=== PATIENT | female | born 1965 | race Caucasian/White ===

== ENCOUNTER → 2024-10-01 | Outpatient (CLI) | payer MEDICARE, MEDICAID, SELFPAY ==
--- NOTE | 2024-10-01 14:44 | XR_ITS ---
Examination: PA lateral chest 2 views TECHNIQUE: Upright PA lateral chest 2 views Exam date and time: October 01, 2024 1450 hours INDICATIONS: Coughing beginning 2 weeks ago FINDINGS: Left perihilar pneumonia Right lung clear Prominent osteopenia with old deformity right humeral neck IMPRESSION: Mild to moderate left perihilar pneumonia
== END | disposition home or self-care (01) ==
PROVIDERS: PCP Physician Assistant; Referring Provider Physician Assistant; Visit Provider Physician Assistant
DX: J18.9 Pneumonia, unspecified organism (principal)
CPT/HCPCS: 71046

== ENCOUNTER 2024-10-05 11:44 | Inpatient (IN) | payer MEDICARE, MEDICAID, SELFPAY ==
[2024-10-05 11:54] VITALS: BP 140/80; PULSE 85; RESP 18; TEMP 36.9; O2SAT 96
[2024-10-05 11:56] VITALS: BMI 26.4
--- NOTE | 2024-10-05 12:08 | PD.EDFALL ---
ED Fall Injury RME/HPI General Chief Complaint: Fall Stated Complaint: FALL Time Seen by Provider: 10/05/24 12:06 Arrival date/time: 10/05/24 11:44 Limitations: no limitations RME / HPI RME / HPI Narrative: 59 year old female who is developmentally delayed presents to the ED BIB[facility] from [facility] for evaluation after fall today. Per caregiver, the patient has had three falls in the last 24 hours which has raised concern. States on the first fall she fell straight on her bottom. On the second fall she fell straight back. On the third fall she tripped on a walker and struck her face on the floor. Additionally report patient appears disoriented adding she is having difficulty with simple tasks which at baseline she would otherwise be able to do. Patient is nonverbal and unable to provide any additional history. Related Data Home Medications ?Medication ?Instructions ?Recorded ?Confirmed levothyroxine 50 mcg tablet See Rx Instructions .Route .COMPLEX 01/18/18 03/23/19 levothyroxine 75 mcg tablet See Rx Instructions .Route .COMPLEX 01/18/18 03/23/19 quetiapine 400 mg tablet,extended 400 mg PO HS 01/18/18 03/23/19 release 24 hr (Seroquel XR) quetiapine 400 mg tablet,extended 400 mg PO QPM 08/09/18 03/23/19 release 24 hr divalproex 500 mg tablet,extended 500 mg PO HS 11/03/18 03/23/19 release 24 hr polyethylene glycol 3350 17 gram 17 g PO QDAY 11/03/18 03/23/19 oral powder packet Previous Rx's ?Medication ?Instructions ?Recorded acetaminophen 325 mg capsule 650 mg (2 x 325 mg) PO Q8HR PRN 11/04/22 pain #30 caps acetaminophen 325 mg tablet 650 mg (2 x 325 mg) PO QID PRN 11/04/22 (Athenol) pain #60 tabs lidocaine 5 % topical patch 2 patch topical QDAY #15 ea 11/04/22 Allergies Allergy/AdvReac Type Severity Reaction Status Date / Time No Known Allergies Allergy Verified 10/05/24 12:01 Review of Systems Review of Systems ROS Unobtainable: unobtainable due to medical condition Past Medical History Past Medical History NEUROLOGIC: Positive Neurological Disorders MUSCULOSKELETAL: Positive Musculoskeletal Disorders, Arthritis and Osteoporosis ENDOCRINE: Positive Endocrine Disorders and Hypothyroidism PSYCHO/SOCIAL: Positive Behavior Problems Social History SMOKING STATUS: Unknown if ever smoked ED Exam General Limitations: Present no limitations General appearance: Present alert (awake) Head Head exam: Present atraumatic Eye Eye exam: Present normal appearance, PERRL and EOMI ENT ENT exam: Present normal exam, normal oropharynx and mucous membranes moist Neck Neck exam: Present normal inspection, full ROM and trachea midline Chest Chest inspection: Present normal inspection and symmetric chest wall rise Respiratory Respiratory exam: Present normal lung sounds bilaterally Cardiovascular Cardiovascular exam: Present regular rate, normal rhythm and normal heart sounds Abdominal Exam Abdominal exam: Present soft and normal bowel sounds Extremities Exam Extremities exam: Present normal inspection and full ROM Back Exam Back exam: Present normal inspection and full ROM Neurological Exam Neurological exam: Present alert (awake), CN II-XII intact and other ( Gross motor function intact sensory function intact) Skin Skin exam: Present warm, dry, intact and normal color Course Quality Measures none Orders Category Date Time Status Bedside Blood Glucose NOW Care 10/05/24 12:54 Active COVID-19 Screening Questionnaire NOW Care 10/05/24 17:23 Active Instrumentation And Control Technician NOW Care 10/05/24 12:55 Active Continuous Pulse Oximetry QSHIFT Care 10/05/24 12:54 Active Decision to Admit X1 Care 10/05/24 17:23 Active EKG (ED ONLY) *Do not use* NOW Care 10/05/24 12:55 Completed Insert IV NOW Care 10/05/24 12:55 Active NPO NOW Care 10/05/24 12:[address] cervical spine wo con Stat Exams 10/05/24 12:[address] head/brain wo con Stat Exams 10/05/24 12:[address] head/brain wo con Stat Exams 10/05/24 16:53 Ordered EKG (ED Only) Stat Exams 10/05/24 12:54 Draft Acetaminophen Stat Lab 10/05/24 13:15 Completed Alcohol, Blood Medical Stat Lab 10/05/24 13:15 Completed CBC Stat Lab 10/05/24 13:15 Completed Comprehensive Metabolic Panel Stat Lab 10/05/24 13:15 Completed Drug Screen,Urine Stat Lab 10/05/24 12:56 Ordered Magnesium Stat Lab 10/05/24 13:15 Completed Partial Thromboplastin Time Stat Lab 10/05/24 13:15 Completed Prothrombin Time with INR Stat Lab 10/05/24 13:15 Completed Salicylate Stat Lab 10/05/24 13:15 Completed Thyroid Stimulating Hormone Stat Lab 10/05/24 13:15 Completed Troponin I Stat Lab 10/05/24 13:15 Completed Urinalysis Stat Lab 10/05/24 12:56 Ordered LORazepam [Ativan Inj] Med 10/05/24 16:53 Discontinued 1 mg IVP X1 ONE LORazepam [Ativan Inj] Med 10/05/24 17:35 Discontinued 1 mg IVP X1 ONE Sodium Chloride 0.9% 1000 ml [Ns] 1,000 ml Med 10/05/24 12:54 Discontinued IV 1,000 mls/hr Vital Signs Vital signs: Vital Signs Temperature 98.4 F 10/05/24 11:54 Pulse Rate 85 10/05/24 11:54 Respiratory Rate 18 10/05/24 11:54 Blood Pressure 140/80 H 10/05/24 11:54 Pulse Oximetry (%) 96 10/05/24 11:54 Fall MDM Narrative MDM Narrative:: Arely Del Angel am scribing for and in the presence of Dr. Bonilla. Patient data External records reviewed:: [facility] previous records (I reviewed ED visit on 09/14/2023 ) Clinical information provided by:: smasher hand Social determinants that could affect healthcare access:: housing ([facility] resident ) Patient has the following chronic illnesses:: Developmental delay How is presenting disease/condition affected by chronic disease/condition?: exacerbated by Evaluation data The following diagnostics were reviewed and interpreted by me:: lab results and EKG tracing(s) (EKG at 13:56. Sinus rhythm, rate 79, no acute ischemic changes, no STEMI. ) Lab and/or radiology exams considered but not ordered:: None Interpretation Summary: Hyponatremia noted CBC WNL Medications / Prescriptions Medications or Prescriptions considered but not ordered:: None Medication administrations:: Medication Administration History Discontinued Medications Sodium Chloride (Ns) 1,000 mls @ 1,000 mls/hr IV .Q1H ONE Stop: 10/05/24 13:53 Last Infusion: 10/05/24 15:00 Dose: Infused Documented By: Admin: 10/05/24 14:00 Dose: 1,000 mls/hr Documented By: TM Lorazepam (Lorazepam 2 Mg/Ml Vial) 1 mg IVP X1 ONE Stop: 10/05/24 16:54 Last Admin: 10/05/24 17:05 Dose: 1 mg Documented By: TM Lorazepam (Lorazepam 2 Mg/Ml Vial) 1 mg IVP X1 ONE Stop: 10/05/24 17:36 Last Admin: 10/05/24 17:57 Dose: 1 mg Documented By: TM See above Consultations Consultation(s) initiated? (list below): Yes Consultation #1 (Physician, Specialty, Details): I spoke with hospitalist Dr. Willis regarding admission. Discussed patients PMHx, HPI, ED course, exam findings, labs, and radiology results. The hospitalist agree to accept the patient for admission. Diagnosis Fall Differential Diagnosis: syncope, fracture of wrist and compression fracture Most likely diagnosis given after review of the tests above:: Acute hyponatremia AMS Admission Indicated Admission indicated?: indicated Admission Request Was there a request for admission?: Yes Admission Attestation Admission request attestation: Discussed case with [] from Hospitalist service regarding admission. Discussed patients ED course, exam findings, labs, and radiology results. The Hospitalist [agrees,declines] to accept the patient for admission. Disposition Plan Disposition Plan: Admit Discharge Plan Plan Patient Disposition: Admit Acute Care w/in Hospital Problem List Clinical Impression: Acute hyponatremia, Altered mental status
--- NOTE | 2024-10-05 12:54 | EKG_ITS ---
[facility] Test Date: 2024-10-05 Pat Name: TRUPTI CARVER Department: Room: - Gender: Female Neurobiologist: : 1965 Requested By: Riaz Champion Order Number: [id number] Reading MD: Riaz Champion Measurements Intervals [place] Rate: 79 P: 49 WY: 165 QRS: 64 QRSD: 100 T: 34 QT: 347 QTc: 399 Interpretive Statements SINUS RHYTHM No previous ECG available for comparison /store/S0/[id number]/ecg/[id number].pdf
--- NOTE | 2024-10-05 12:54 | XR_ITS ---
Examination: CT cervical spine without contrast 2-D sagittal reconstructions 2-D coronal reconstructions 3-D reconstructions. Exam date and time:October 05, 2024 11:55 PM INDICATIONS: Altered mental status today with neck pain CTDI:vol (mGy) 7.55 DLP: (mGycm) 1225 Technique: Multiple 2 mm axial sections of the cervical spine have been obtained. The coronal and sagittal reconstructions have been obtained. 3-D reconstructions have been obtained. Low dose protocols were performed. One or more of the following dose reduction techniques were used; automated exposure control, adjustment of the mA and/or KV according to patient size, use of iterative reconstruction technique. Findings: Axial sections demonstrate intact base of the skull. C1 exhibit satisfactory relationship to the odontoid. No acute cervical vertebral body fracture seen. Alignment posterior spinous processes satisfactory. Impression: No acute cervical fracture.
--- NOTE | 2024-10-05 12:57 | XR_ITS ---
Examination: CT brain head without contrast. 2-D sagittal coronal reconstructions Date and time of exam:October 05, 2024, 11:55 PM INDICATIONS: Altered mental status today CTDI: vol (mGy):7.85 DLP: (mGycm):1225 Technique: Multiple CT axial sections of the brain have been obtained, 5 mm slice thickness. Contrast has not been administered. 2-D sagittal, coronal reconstructions have been obtained Low dose protocols were performed. One or more of the following dose reduction techniques were used; automated exposure control, adjustment of the mA and/or KV according to patient size, use of iterative reconstruction technique. Findings: Study degraded by patient motion No gross hemorrhage or mass effect or midline shift Cranial vault grossly intact IMPRESSION: Study degraded by patient motion No gross hemorrhage mass effect or midline shift Repeat this study as clinically warranted
[2024-10-05 13:55] LABS: Basophils % (Auto) 0 % (0-2.5); Eosinophils % (Auto) 0 % (0-10); Hematocrit 34.8 % (36.0-46.0); Hemoglobin 12.7 g/dL (12.0-16.0); Immature Granulocytes % (Auto) 1 % (0-0); Immature Granulocytes Auto 0.11 Thou/mm3 (0.00-0.00); Lymphocytes # (Auto) 0.9 Thou/mm3 (1.0-4.8); Lymphocytes % (Auto) 10 % (10-50); Mean Corpuscular HGB Conc 36.5 g/dl (31.0-37.0); Mean Corpuscular Hemoglobin 29.5 pg (25.0-35.0); Mean Corpuscular Volume 81 fL (80-100); Monocytes # (Auto) 0.7 Thou/mm3 (0.0-0.8); Monocytes % (Auto) 8 % (0-12); Neutrophils # (Auto) 6.9 Thou/mm3 (1.8-7.7); Neutrophils % (Auto) 80 % (37-80); Nucleated Red Blood Cell % 0 /100 WBC (0); Platelet Count 234 Thou/mm3 (140-440); RDW Standard Deviation 37.2 fL (36.4-46.3); White Blood Count 8.6 Thou/mm3 (3.6-11.0)
[2024-10-05] MEDS: SODIUM CHLORIDE 0.9% 1000 ML 1,000 ML IV (14:00)
[2024-10-05 14:11] LABS: Acetaminophen < 2.0 mcg/mL (10.0-20.0); Alanine Aminotransferase 18 U/L (10-49); Albumin, Serum 4.2 gm/dL (3.4-4.8); Albumin/Globulin Ratio 1.8 (1.2-2.2); Alcohol, Blood Medical < 3.0 mg/dL (0-10.0); Alkaline Phosphatase 95 U/L (46-116); Anion Gap 4 (7-16); Aspartate Amino Transferase 24 U/L (0-34); BUN/Creatinine Ratio 18 Ratio (12-20); Bilirubin,Total 0.4 mg/dL (0.3-1.2); Blood Urea Nitrogen 11 mg/dL (9-23); Calcium 8.6 mg/dL (8.3-10.6); Calcium (Corrected) 8.6 mg/dL (8.5-10.1); Carbon Dioxide 28.3 mMol/L (20.0-31.0); Chloride 90 mMol/L (98-107); Creatinine (Component) 0.6 mg/dL (0.6-1.3); Estimated Creatinine Clearance 81.5 mL/min (>60); Globulin 2.4 gm/dL (2.3-3.5); Glucose 95 mg/dL (74-106); Magnesium 1.9 mg/dL (1.6-2.6); Osmolality,Calculated 245 (275-295); Partial Thromboplastin Time 31.6 Seconds (22.0-36.0); Potassium 4.6 mMol/L (3.4-5.1); Prothrombin Time 10.8 Seconds (9.0-12.2); Salicylate < 3.0 mg/dL; Sodium 122 mMol/L (136-145); Thyroid Stimulating Hormone 1.19 uIU/mL (0.55-4.78); Total Protein 6.6 gm/dL (5.7-8.2); Troponin I < 0.020 ng/mL (0.0-0.045); eGFR > 60 See Note
--- NOTE | 2024-10-05 15:53 | PC.NURSE ---
PROVIDER AWARE PT NOT COOPERATING W/CT. CAREPROVIDER AT BEDSIDE AWARE AND MADE CONSERVATOR AWARE.
[2024-10-05 16:48] VITALS: BP 179/66; PULSE 85; RESP 18; TEMP 36.7; O2SAT 97
[2024-10-05 16:53] VITALS: BP 155/62; PULSE 85; RESP 18; TEMP 37; O2SAT 95
[2024-10-05] MEDS: LORazepam 2 MG/ML VIAL 1 MG IVP ×2 (17:05→17:57)
[2024-10-05 18:40] VITALS: BP 172/56; PULSE 90; RESP 18; TEMP 36.7; O2SAT 95
--- NOTE | 2024-10-05 18:42 | ESHP_ITS ---
Documentation for date of: 10/05/24 HPI - Hospitalist History of Present Illness History of present illness: Patient is a 59 years old female with past medical history of developmental delay, hypothyroidism, who presented to the ED after having a fall. As per the glass production machine operator at bedside, patient has not been at her baseline mentation since yesterday and had fall 3 times in last 24 hours. Patient is nonverbal and cannot communicate of her symptoms. The glass production machine operator denied any fever, vomiting, diarrhea or bleeding. In the ED, her vitals were stable. Lab result was significant for sodium level of 122, chloride [address] head and CT cervical spine was attempted in the ED but was unsuccessful due to patient noncompliance despite anxiolytics. Patient appears to be moving all her limbs at bedside. We will admit the patient for management of acute encephalopathy likely secondary to hyponatremia. Review of Systems Review of Systems Systems Reviewed: All systems reviewed, normal except as documented Meds Home Medications and Allergies Home Medications ?Medication ?Instructions ?Recorded ?Confirmed ?Type levothyroxine 50 mcg tablet See Rx Instructions .Route .COMPLEX 01/18/18 03/23/19 History levothyroxine 75 mcg tablet See Rx Instructions .Route .COMPLEX 01/18/18 03/23/19 History quetiapine 400 mg tablet,extended 400 mg PO HS 8 03/23/19 History release 24 hr (Seroquel XR) quetiapine 400 mg tablet,extended 400 mg PO QPM 03/23/19 History release 24 hr divalproex 500 mg tablet,extended 500 mg PO HS 9 03/23/19 History release 24 hr polyethylene glycol 3350 17 gram 17 g PO QDAY 11/03/18 03/23/19 History oral powder packet Allergies Allergy/AdvReac Type Severity Reaction Status Date / Time No Known Allergies Allergy Verified 10/05/24 12:01 Exam Vital Signs Temp Pulse Resp BP Pulse Ox O2 Del Method 98.0 F 90 18 172/56 H 95 Room Air 10/05/24 18:40 10/05/24 18:40 10/05/24 18:40 10/05/24 18:40 10/05/24 18:40 10/05/24 16:53 Narrative General: Alert, nonverbal at baseline, does not follow command HEENT: EOMI, PERRLA, no pallor or icterus Cardio: RRR, S1 and S2 heard without murmurs Respiratory: Clear to auscultate bilaterally without wheezing or crackles MSK: No edema Neuro:Alert, moving all her extremities Results - Hospitalist Labs Diagrams: 10/05/24 13:15 10/05/24 13:15 Labs: Short CBC 10/05/24 Range/Units 13:15 WBC 8.6 (3.6-11.0) Thou/mm3 Hgb 12.7 (12.0-16.0) g/dL Hct 34.8 L (36.0-46.0) % Plt Count 234 (140-440) Thou/mm3 BMP 10/05/24 13:15 Sodium 122 L Potassium 4.6 Chloride 90 L Carbon Dioxide 28.3 BUN 11 Creatinine 0.6 Glucose 95 Calcium 8.6 Cardiac Enzymes 10/05/24 Range/Units 13:15 Troponin I < 0.020 (0.0-0.045) ng/mL Liver Function 10/05/24 Range/Units 13:15 Total Bilirubin 0.4 (0.3-1.2) mg/dL AST 24 (0-34) U/L ALT 18 (10-49) U/L Alkaline Phosphatase 95 (46-116) U/L Albumin 4.2 (3.4-4.8) gm/dL Assessment & Plan -Hospitalist Additional Assessment 59 years old female with past medical history of developmental delay, hypothyroidism presented to the ED after a fall. Altered mental status as per glass production machine operator at bedside. #Acute encephalopathy #Hyponatremia Patient has been not at her baseline as per the glass production machine operator for last 24 hours and had 3 falls Could not obtain CT head and CT cervical spine as patient was uncooperative despite anxiolytics Unclear if patient had decreased oral intake Patient has sodium level of 122 on presentation, unclear chronicity Patient received 1 L IV normal saline in the ED, started on normal saline at 75 cc/h We will monitor the sodium level closely with every 4 hours sodium checks, goal increase in sodium level by 6 mEq in 24 hours We will plan for nephrology consult if does not improve with IV hydration and we will consider neurology consult if patient's mentation does not improve #Hypothyroidism Resumed home levothyroxine #Developmental delay Resumed home divalproex, oxcarbazepine, Ingrezza Diet: Regular diet CODE STATUS: Full code DVT prophylaxis: Lovenox SC Disposition: Telemetry for management of acute encephalopathy likely secondary to hyponatremia Sahil Willis MD Quality Measures Quality Measures none
[2024-10-05] MEDS: SODIUM CHLORIDE 0.9% 1000 ML 1,000 ML 75 ML IV (18:57)
--- NOTE | 2024-10-05 18:59 | PC.NURSE ---
JOSE NOT WORKING, ONCOMING RN MADE AWARE, PT NEEDS CT.
[2024-10-05 21:16] LABS: Sodium 124 mMol/L (136-145)
[2024-10-05 21:51] VITALS: BP 141/86; PULSE 92; RESP 18; TEMP 36.7; O2SAT 97
[2024-10-05 22:08] LABS: Collection Type, Urine Clean Catch
[2024-10-05 22:20] LABS: Bacteria,Urine Rare; Bilirubin,Urine Negative (Negative); Blood,Urine Trace (Negative); Clarity,Urine Clear (Clear/Hazy); Color,Urine Lt-Yellow (Lt Yel-Yel); Glucose, Urine Negative (Negative); Ketones,Urine Negative (Negative); Leukocyte Esterase,Urine Positive (Negative); Nitrite,Urine Negative (Negative); PH,Urine 6.5 (5.0-7.0); Protein,Urine Negative (Neg - Trace); RBC,Urine 8 /hpf (0-3); Specific Gravity,Urine 1.008 (1.001-1.035); Squamous Epithelial Cell,Urine < 1 /hpf (0-5); Urobilinogen,Urine Negative mg/dL (0.0-1.0); WBC,Urine 85 /hpf (0-5)
[2024-10-05 22:21] LABS: Amphetamine/Methamp Scrn,U Negative (Negative); Barbiturate Screen,Urine Negative (Negative); Benzodiazepines Screen,Urine Negative (Negative); Benzoylecgonine Screen, Ur Negative (Negative); Fentanyl Screen,Urine Negative (Negative); Opiate Screen,Urine Negative (Negative); THC Screen,Urine Negative (Negative)
--- NOTE | 2024-10-05 22:45 | PC.NURSE ---
pt very agitated screaming loudly is very uncooperative, and anxious. MD aware. cath UA was done with assistance of senior quality technician and pts caregiver.
[2024-10-05] MEDS: LORazepam 2 MG/ML VIAL IVP ×2 (23:00→23:55)
[2024-10-06] VITALS (17 sets, daily range): BP systolic 106–152; BP diastolic 52–80; PULSE 58–92; RESP 14–21; TEMP 36.1–36.9; O2SAT 95–100
--- NOTE | 2024-10-06 00:14 | PC.NURSE ---
. pt was given ativan for agitation and anxiety, just before pt taken to CT. Pt on cardiac technician including pulse-ox while in CT. I accompanied pt to CT. Tolerated well.
--- NOTE | 2024-10-06 01:49 | PRELIM_ITS ---
CT scan of the cervical spine without intravenous contrast (axial sections with sagittal and coronal reformats). October 05, 2024 2320 hours Clinical History: fall Comparison: None Findings: There is no fracture, traumatic subluxation or other acute osseous abnormality of the cervical spine. There is degenerative change of the cervical spine. There is mild degenerative retrolisthesis of C3 on C4. There is C3-C4 foraminal stenosis. The prevertebral soft tissues are unremarkable. Impression: No acute osseous abnormality of the cervical spine. Degenerative change. Report Electronically Signed By: Jan Sam 10/06/2024 1:48:41 AM [EST]
--- NOTE | 2024-10-06 01:52 | PRELIM_ITS ---
CT scan of the head without intravenous contrast (axial sections with sagittal and coronal reformats). October 05, 2024 at 2320 hours Clinical History: Fall, head injury. Comparison: No prior study is available for comparison. Findings: There is no intracranial hemorrhage, extra-axial collection, mass, mass-effect or midline shift. There is good lizarraga-white differentiation. There is no CT evidence of acute large vascular territorial infarct. Ventricles are not enlarged or effaced. Visualized paranasal sinuses and tympanomastoid cavities are clear. The bony calvarium is intact. Impression: No intracranial hemorrhage, mass-effect or midline shift. No CT evidence of acute large vascular territorial infarct. Report Electronically Signed By: Jan Sam 10/06/2024 1:51:55 AM [EST]
[2024-10-06 02:01] LABS: Sodium 128 mMol/L (136-145)
--- NOTE | 2024-10-06 02:38 | PC.NURSE ---
pt is sleeping restlessly. child care associate teacher is at bedside.
[2024-10-06 05:35] LABS: Basophils % (Auto) 0 % (0-2.5); Eosinophils % (Auto) 0 % (0-10); Hematocrit 32.7 % (36.0-46.0); Hemoglobin 12.1 g/dL (12.0-16.0); Immature Granulocytes % (Auto) 0 % (0-0); Immature Granulocytes Auto 0.01 Thou/mm3 (0.00-0.00); Lymphocytes # (Auto) 1.1 Thou/mm3 (1.0-4.8); Lymphocytes % (Auto) 14 % (10-50); Mean Corpuscular Hemoglobin 29.2 pg (25.0-35.0); Mean Corpuscular Volume 79 fL (80-100); Monocytes # (Auto) 0.9 Thou/mm3 (0.0-0.8); Monocytes % (Auto) 11 % (0-12); Neutrophils # (Auto) 5.8 Thou/mm3 (1.8-7.7); Neutrophils % (Auto) 74 % (37-80); Nucleated Red Blood Cell % 0 /100 WBC (0); Platelet Count 231 Thou/mm3 (140-440); RDW Standard Deviation 36.4 fL (36.4-46.3); Red Blood Count 4.14 Miln/mm3 (4.00-5.20); White Blood Count 7.9 Thou/mm3 (3.6-11.0)
[2024-10-06 06:13] LABS: Alanine Aminotransferase 16 U/L (10-49); Albumin, Serum 4.1 gm/dL (3.4-4.8); Albumin/Globulin Ratio 1.8 (1.2-2.2); Alkaline Phosphatase 96 U/L (46-116); Anion Gap 4 (7-16); Aspartate Amino Transferase 21 U/L (0-34); BUN/Creatinine Ratio 12 Ratio (12-20); Bilirubin,Total 0.5 mg/dL (0.3-1.2); Blood Urea Nitrogen 7 mg/dL (9-23); Calcium 8.8 mg/dL (8.3-10.6); Calcium (Corrected) 8.8 mg/dL (8.5-10.1); Carbon Dioxide 29.6 mMol/L (20.0-31.0); Chloride 96 mMol/L (98-107); Creatinine (Component) 0.6 mg/dL (0.6-1.3); Estimated Creatinine Clearance 81.5 mL/min (>60); Globulin 2.3 gm/dL (2.3-3.5); Glucose 88 mg/dL (74-106); Osmolality,Calculated 257 (275-295); Phosphorous 2.7 mg/dL (2.4-5.1); Sodium 130 mMol/L (136-145); Total Protein 6.4 gm/dL (5.7-8.2); eGFR > 60 See Note
[2024-10-06] MEDS: ENOXAPARIN SOD INJ 40 MG/0.4 ML SYRINGE SC (08:53)
[2024-10-06] MEDS: LEVOTHYROXINE SODIUM 25 MCG TABLET 50 MCG PO (08:54)
[2024-10-06] MEDS: DEXTROSE 5%-WATER 200 ML 100 ML IV (08:58)
[2024-10-06] MEDS: PROPRANOLOL 10 MG TABLET PO (09:56)
[2024-10-06] MEDS: OXCARBazepine 150 MG TABLET (NON-FORMULARY) 300 MG PO (09:57)
[2024-10-06] MEDS: INGREZZA 80 MG CAPSULE PO (10:15)
[2024-10-06] MEDS: QUEtiapine FUMARATE 100 MG TABLET 400 MG PO (12:34)
[2024-10-06] MEDS: cefTRIAXone/D5w 1gm IV premix 1 GM/50 ML BAG IV (14:15)
[2024-10-06] MEDS: DOXYCYCLINE INJ 100 MG in SODIUM CHLORIDE 0.9% (POP) 100 ML IV ×2 (15:29→20:08)
[2024-10-06 16:14] LABS: Sodium 129 mMol/L (136-145)
--- NOTE | 2024-10-06 17:37 | ESPR_ITS ---
Documentation for date of: 10/06/24 Subjective Subjective Interval history: Please a 59-year-old female patient with past medical history of developmental delay, hypothyroidism, was [facility] after she experienced a fall down. As per the caregiver patient has had 3 times of falls for the past 24 hours. She is nonverbal to be able to contribute to symptoms. Patient was admitted for recurrent falls secondary to hypothyroidism. Overnight noticed overcorrection of her sodium which increased to 130 from 122 over 20 hours. Will hold the NS and start the patient on D5W 100 mL over 2 hours. Will continue to monitor sodium level every 4 hours at this time[address] CT scan came back negative for any hemorrhage or mass effect however the images were significantly degraded secondary to patient's motions. At this time patient seems to be sleepy most likely secondary to the lorazepam that was given at the ED. Exam Vital Signs Temp Pulse Resp BP Pulse Ox O2 Del Method 96.9 F 66 16 147/74 H 96 Room Air 10/06/24 14:00 10/06/24 16:00 10/06/24 14:00 10/06/24 14:00 10/06/24 14:00 10/06/24 14:00 Narrative Exam GEN: Nonverbal, sleepy, does not follow command HEENT: NC/AC, oral mucosa moist, neck supple CVS: RRR, S1-S2 present, no murmurs appreciated RESP: CTAB GI: soft,non distended, non tender, NBS MSK: able to move all 4 limbs, no lower extremity edema SKIN: warm and dry PROGRAMMABLE LOGIC CONTROLLER ASSEMBLER: Unable to assess due to patient mental status Objective Labs 10/07/24 05:25 10/07/24 05:25 Labs: Laboratory Results - last 24 hr 10/05/24 10/05/24 10/05/24 13:15 20:54 22:00 WBC RBC Hgb Hct MCV MCH MCHC RDW Std Deviation Plt Count Neut % (Auto) Lymph % (Auto) [place] % (Auto) Eos % (Auto) Baso % (Auto) Neut # (Auto) Lymph # (Auto) [place] # (Auto) Eos # (Auto) Baso # (Auto) Immature Gran # (Auto) Absolute Nucleated RBC Immature Gran % Nucleated RBC % Sodium 122 L 124 L Potassium 4.6 Chloride 90 L Carbon Dioxide 28.3 Anion Gap 4 L BUN 11 Creatinine 0.6 Estim Creat Clear Calc 81.5 eGFR > 60 BUN/Creatinine Ratio 18 Glucose 95 Calculated Osmolality 245 L Calcium 8.6 Corrected Calcium 8.6 Phosphorus Magnesium 1.9 Total Bilirubin 0.4 AST 24 ALT 18 Alkaline Phosphatase 95 Troponin I < 0.020 Total Protein 6.6 Albumin 4.2 Globulin 2.4 Albumin/Globulin Ratio 1.8 TSH 1.19 Ur Collection Type Clean Catch Urine Color Lt-Yellow Urine Clarity Clear Urine pH 6.5 Ur Specific [place] 1.008 Urine Protein Negative Urine Glucose (UA) Negative Urine Ketones Negative Urine Blood Trace Urine Nitrite Negative Urine Bilirubin Negative Urine Urobilinogen (Auto) Negative Ur Leukocyte Esterase Positive Urine RBC 8 H Urine WBC 85 H Ur Squamous Epith Cells < 1 Urine Bacteria Rare Salicylates < 3.0 Urine Opiates Screen Negative Urine Fentanyl Screen Negative Acetaminophen < 2.0 L Ur Barbiturates Screen Negative U Amphetamin/Meth Scrn Negative U Benzodiazepines Scrn Negative U Cocaine Metab Screen Negative U Marijuana (THC) Screen Negative Ethyl Alcohol < 3.0 10/06/24 10/06/24 10/06/24 01:42 04:20 15:28 WBC 7.9 RBC 4.14 Hgb 12.1 Hct 32.7 L MCV 79 L MCH 29.2 MCHC 37.0 RDW Std Deviation 36.4 Plt Count 231 Neut % (Auto) 74 Lymph % (Auto) 14 [place] % (Auto) 11 Eos % (Auto) 0 Baso % (Auto) 0 Neut # (Auto) 5.8 Lymph # (Auto) 1.1 [place] # (Auto) 0.9 H Eos # (Auto) 0.0 Baso # (Auto) 0.0 Immature Gran # (Auto) 0.01 H Absolute Nucleated RBC 0.00 Immature Gran % 0 Nucleated RBC % 0 Sodium 128 L 130 L 129 L Potassium 4.0 D Chloride 96 L Carbon Dioxide 29.6 Anion Gap 4 L BUN 7 L Creatinine 0.6 Estim Creat Clear Calc 81.5 eGFR > 60 BUN/Creatinine Ratio 12 Glucose 88 Calculated Osmolality 257 L Calcium 8.8 Corrected Calcium 8.8 Phosphorus 2.7 Magnesium 2.0 Total Bilirubin 0.5 AST 21 ALT 16 Alkaline Phosphatase 96 Troponin I Total Protein 6.4 Albumin 4.1 Globulin 2.3 Albumin/Globulin Ratio 1.8 TSH Ur Collection Type Urine Color Urine Clarity Urine pH Ur Specific [place] Urine Protein Urine Glucose (UA) Urine Ketones Urine Blood Urine Nitrite Urine Bilirubin Urine Urobilinogen (Auto) Ur Leukocyte Esterase Urine RBC Urine WBC Ur Squamous Epith Cells Urine Bacteria Salicylates Urine Opiates Screen Urine Fentanyl Screen Acetaminophen Ur Barbiturates Screen U Amphetamin/Meth Scrn U Benzodiazepines Scrn U Cocaine Metab Screen U Marijuana (THC) Screen Ethyl Alcohol Quality Measures Quality Measures none Assessment & Plan Assessment Current Active Medications: Generic Name Dose Route Start Last Admin Trade Name Freq PRN Reason Stop Dose Admin Acetaminophen 650 mg 10/05/24 18:33 Acetaminophen 325 Mg Tablet PO 11/04/24 18:32 Q6H PRN Fever >101.5 Ingrezza 80 Mg 0 ea 10/06/24 09:00 10/06/24 10:15 Capsule PO 11/05/24 08:59 80 capsule QDAY DM Administration Enoxaparin Sodium 40 mg 10/06/24 09:00 10/06/24 08:53 Enoxaparin Sod Inj 40 Mg/0.4 Ml Syringe SC 10/20/24 08:59 40 mg QDAY DM Administration Sodium Chloride 1,000 mls @ 75 mls/hr 10/05/24 18:45 10/06/24 08:37 Ns IV 11/04/24 18:44 0 mls/hr .[id number] DM Infusion Ceftriaxone Sodium/Dextrose 1 gm in 50 mls @ 100 mls/hr 10/06/24 13:49 10/06/24 14:15 Rocephin/D5w 1gm Iv Premix IV 10/13/24 13:48 100 mls/hr QDAY DM Administration Doxycycline Hyclate 100 mg/ 100 mls @ 100 mls/hr 10/06/24 14:00 10/06/24 15:29 Sodium Chloride IV 10/13/24 13:59 100 mls/hr BID DM Administration Levothyroxine Sodium 50 mcg 10/06/24 06:00 10/06/24 08:54 Levothyroxine Sodium 25 Mcg Tablet PO 11/05/24 05:59 50 mcg ACBR DM Administration Ondansetron HCl 4 mg 10/05/24 18:33 Ondansetron Inj 2 Mg/Ml Inj 2 Ml IV 11/04/24 18:32 Q6H PRN NAUSEA OR VOMITING Protocol Oxcarbazepine 300 mg 10/05/24 21:00 10/06/24 09:57 Oxcarbazepine 150 Mg Tablet (Non-Formulary) PO 11/04/24 20:59 300 mg BID DM Administration Propranolol HCl 10 mg 10/06/24 09:00 10/06/24 09:56 Propranolol 10 Mg Tablet PO 11/05/24 08:59 10 mg QDAY DM Administration Quetiapine Fumarate 400 mg 10/06/24 11:45 10/06/24 12:34 Quetiapine Fumarate 100 Mg Tablet PO 11/05/24 11:44 400 mg QDAY DM Administration Plan Summary: A 59-year-old female patient with past medical history of developmental delay, hypothyroidism, [facility] after she was noticed to have 3 episodes of falls. Patient was admitted for AMS and recurrent falls most likely secondary to hypothyroidism. Assessment and plan #Acute encephalopathy most likely secondary to hyponatremia #Hyponatremia #History of hypothyroidism #History of developmental delay Patient has been not at her baseline as per the clinical resource manager for last 24 hours and had 3 falls Initially could not obtain CT head and CT cervical spine as patient was uncooperative despite anxiolytics Unclear if patient had decreased oral intake Patient has sodium level of 122 on presentation, unclear chronicity Patient received 1 L IV normal saline in the ED, started on normal saline at 75 cc/h, however it overcorrected sodium level to 130 x 8 mEq in 20 hours. Plan ? Sodium checks every 4 hours ? Stop NS ? Start the patient on D5W 300 mL over 2 hours ? Continue to monitor oral intake with strict ins and outs #PNA Patient has hx of cough for the past week. CXR from the 01 of October showed pre- hilar PNA Plan - Rocefin and Doxy 10/06/2024- - F/U on the C/S #Hypothyroidism Resumed home levothyroxine #Developmental delay Resumed home divalproex, oxcarbazepine, [facility] Maintenance: FEN: Regular diet DVT ppx: Lovenox GI ppx: Protonix IV lines: PIV Salazar: None Code status: Full code Dispo: Telemetry - Patient's plan and care discussed with my attending, Dr. Uriel Banegas MD Internal Medicine PGY-2 Attending Provider Attestation/Addendum I attest that I was physically present for the evaluation, physical examination, lab and imaging review of the patient with the residents. I discussed the case with the residents and agree with the findings and plans of care as documented above. Sahil Willis MD
[2024-10-06 19:22] LABS: Sodium 128 mMol/L (136-145)
--- NOTE | 2024-10-06 22:23 | PC.NURSE ---
PT DROWSY. WILL RESPOND WITH GROANS WHEN REPOSITIONING. WILL OPEN EYES MOMENTARILY WITH TACTILE STIMULATION. STATES NO WHEN OFFERING MEDICATION. DR. WASHINGTON MADE AWARE. WILL HOLD MEDICATION FOR NOW.
[2024-10-06 22:35] LABS: Sodium 132 mMol/L (136-145)
[2024-10-07] VITALS (8 sets, daily range): BP systolic 99–155; BP diastolic 54–95; PULSE 57–79; RESP 12–20; TEMP 36.2–36.8; O2SAT 96–99; BMI 23.3
[2024-10-07] MEDS: LEVOTHYROXINE SODIUM 25 MCG TABLET 50 MCG PO (05:27)
[2024-10-07 06:11] LABS: Basophils % (Auto) 1 % (0-2.5); Eosinophils % (Auto) 1 % (0-10); Hematocrit 33.9 % (36.0-46.0); Hemoglobin 11.8 g/dL (12.0-16.0); Immature Granulocytes % (Auto) 0 % (0-0); Immature Granulocytes Auto 0.01 Thou/mm3 (0.00-0.00); Lymphocytes # (Auto) 1.1 Thou/mm3 (1.0-4.8); Lymphocytes % (Auto) 21 % (10-50); Mean Corpuscular HGB Conc 34.8 g/dl (31.0-37.0); Mean Corpuscular Hemoglobin 28.6 pg (25.0-35.0); Mean Corpuscular Volume 82 fL (80-100); Monocytes # (Auto) 0.7 Thou/mm3 (0.0-0.8); Monocytes % (Auto) 14 % (0-12); Neutrophils # (Auto) 3.3 Thou/mm3 (1.8-7.7); Neutrophils % (Auto) 64 % (37-80); Nucleated Red Blood Cell % 0 /100 WBC (0); Platelet Count 180 Thou/mm3 (140-440); RDW Standard Deviation 38.5 fL (36.4-46.3); Red Blood Count 4.12 Miln/mm3 (4.00-5.20); White Blood Count 5.1 Thou/mm3 (3.6-11.0)
[2024-10-07 06:47] LABS: Alanine Aminotransferase 11 U/L (10-49); Albumin, Serum 3.4 gm/dL (3.4-4.8); Albumin/Globulin Ratio 1.5 (1.2-2.2); Alkaline Phosphatase 85 U/L (46-116); Anion Gap 8 (7-16); Aspartate Amino Transferase 16 U/L (0-34); BUN/Creatinine Ratio 10 Ratio (12-20); Bilirubin,Total 0.4 mg/dL (0.3-1.2); Blood Urea Nitrogen 6 mg/dL (9-23); Calcium 8.3 mg/dL (8.3-10.6); Calcium (Corrected) 8.8 mg/dL (8.5-10.1); Carbon Dioxide 25.4 mMol/L (20.0-31.0); Chloride 99 mMol/L (98-107); Creatinine (Component) 0.6 mg/dL (0.6-1.3); Estimated Creatinine Clearance 71.6 mL/min (>60); Globulin 2.2 gm/dL (2.3-3.5); Glucose 76 mg/dL (74-106); Osmolality,Calculated 261 (275-295); Potassium 3.9 mMol/L (3.4-5.1); Sodium 132 mMol/L (136-145); Total Protein 5.6 gm/dL (5.7-8.2); eGFR > 60 See Note
[2024-10-07] MEDS: DOXYCYCLINE INJ 100 MG in SODIUM CHLORIDE 0.9% (POP) 100 ML IV ×2 (10:14→20:03)
[2024-10-07] MEDS: ENOXAPARIN SOD INJ 40 MG/0.4 ML SYRINGE SC (10:14)
[2024-10-07] MEDS: cefTRIAXone/D5w 1gm IV premix 1 GM/50 ML BAG IV (10:14)
[2024-10-07] MEDS: QUEtiapine FUMARATE 100 MG TABLET 400 MG PO (10:14)
[2024-10-07] MEDS: OXCARBazepine 150 MG TABLET (NON-FORMULARY) 300 MG PO ×2 (10:15→20:03)
[2024-10-07] MEDS: PROPRANOLOL 10 MG TABLET PO (10:15)
[2024-10-07] MEDS: INGREZZA 80 MG CAPSULE PO (10:16)
--- NOTE | 2024-10-07 12:55 | PC.SS ---
Zenaida Serrato is a 59 year old female admitted to [facility] for Fall. SW made contact with francisco javier Russell from [facility] , . Role and reason for the contact was explained to Tony. SS confirmed pt is affiliated with [facility] but is not conserved. [facility] will make invasive medical decisions. Pt is pt at [facility] and plans to return. SS confirmed information on factsheet was accurate. Pt does have family that lives in the [place] but are not decision makers. Transportation discussed and facility will be able to transport pt back to facility. Pt sees Dr. Iesha Silveira. Tony indicated in order to have pt return to facility she will need to be ambulatory. director of student services will remain available for any additional needs.? PCP: Dr. Iesha Silveira Emergency Contact: francisco javier Russell from [facility], Address: Correct on FaceSheet Discharge Destination: [facility]
--- NOTE | 2024-10-07 13:00 | PC.SS ---
SS spoke with Tony Asher, child care development specialist at [facility], went over medicare information
--- NOTE | 2024-10-07 13:06 | PC.NURSE ---
Notified Dr Banegas that [facility] needed patient to be ambulatory prior to discharge. Physical therapy has been consulted but not yet fulfilled. Discharge will be cancelled.
--- NOTE | 2024-10-07 15:11 | ESPR_ITS ---
Documentation for date of: 10/07/24 Subjective Subjective Interval history: Patient was seen and examined at bedside. Seems to be more cooperative and calm on the bed. As per caregiver patient was able to feed with no resistance as she was cooperative. They are asking if the patient can get physical therapy before discharge. Patient will undergo physical therapy tomorrow and then patient can be discharged. Today her serum sodium is 132. Sodium checks at this time I will switch to a steady level of 132. Will continue the patient treatment on doxycycline and Augmentin on discharge to complete 7 days. On review of the patient's chart we noted that the patient was taking loratadine, and high-dose of Seroquel 800 mg/day. Since admission patient was only started on 400 mg which seems to be helping with improving her mentation. Patient was also noticed to be taking loratadine in which it was not resumed on admission which may also play a role on improvement of her condition. Exam Vital Signs Temp Pulse Resp BP Pulse Ox O2 Del Method 98.0 F 67 12 99/75 97 Room Air 10/07/24 12:00 10/07/24 12:00 10/07/24 12:00 10/07/24 12:00 10/07/24 12:00 10/07/24 12:00 Narrative Exam GEN: Alert and cooperative, does not seem to be in distress HEENT: NC/AC, oral mucosa moist, neck supple CVS: RRR, S1-S2 present, no murmurs appreciated RESP: CTAB GI: soft,non distended, non tender, NBS MSK: able to move all 4 limbs, no lower extremity edema SKIN: warm and dry BUSINESS OBJECTS ARCHITECT: CN II-XII and Sensation grossly intact. Objective Labs 10/07/24 05:10/07/24 05: Labs: Laboratory Results - last 24 hr 10/06/24 10/06/24 10/06/24 15:28 18:41 22:02 WBC RBC Hgb Hct MCV MCH MCHC RDW Std Deviation Plt Count Neut % (Auto) Lymph % (Auto) [place] % (Auto) Eos % (Auto) Baso % (Auto) Neut # (Auto) Lymph # (Auto) [place] # (Auto) Eos # (Auto) Baso # (Auto) Immature Gran # (Auto) Absolute Nucleated RBC Immature Gran % Nucleated RBC % Sodium 129 L 128 L 132 L Potassium Chloride Carbon Dioxide Anion Gap BUN Creatinine Estim Creat Clear Calc eGFR BUN/Creatinine Ratio Glucose Calculated Osmolality Calcium Corrected Calcium Total Bilirubin AST ALT Alkaline Phosphatase Total Protein Albumin Globulin Albumin/Globulin Ratio 10/07/24 05:25 WBC 5.1 RBC 4.12 Hgb 11.8 L Hct 33.9 L MCV 82 MCH 28.6 MCHC 34.8 RDW Std Deviation 38.5 Plt Count 180 D Neut % (Auto) 64 Lymph % (Auto) 21 [place] % (Auto) 14 H Eos % (Auto) 1 Baso % (Auto) 1 Neut # (Auto) 3.3 Lymph # (Auto) 1.1 [place] # (Auto) 0.7 Eos # (Auto) 0.0 Baso # (Auto) 0.0 Immature Gran # (Auto) 0.01 H Absolute Nucleated RBC 0.00 Immature Gran % 0 Nucleated RBC % 0 Sodium 132 L Potassium 3.9 Chloride 99 Carbon Dioxide 25.4 Anion Gap 8 BUN 6 L Creatinine 0.6 Estim Creat Clear Calc 71.6 eGFR > 60 BUN/Creatinine Ratio 10 L Glucose 76 Calculated Osmolality 261 L Calcium 8.3 Corrected Calcium 8.8 Total Bilirubin 0.4 AST 16 ALT 11 Alkaline Phosphatase 85 Total Protein 5.6 L Albumin 3.4 D Globulin 2.2 L Albumin/Globulin Ratio 1.5 Quality Measures Quality Measures none Assessment & Plan Assessment Current Active Medications: Generic Name Dose Route Start Last Admin Trade Name Freq PRN Reason Stop Dose Admin Acetaminophen 650 mg 10/05/24 18:33 Acetaminophen 325 Mg Tablet PO 11/04/24 18:32 Q6H PRN Fever >101.5 Ingrezza 80 Mg 0 ea 10/06/24 09:00 10/07/24 10:16 Capsule PO 11/05/24 08:59 80 capsule QDAY DM Administration Enoxaparin Sodium 40 mg 10/06/24 09:00 10/07/24 10:14 Enoxaparin Sod Inj 40 Mg/0.4 Ml Syringe SC 10/20/24 08:59 40 mg QDAY DM Administration Ceftriaxone Sodium/Dextrose 1 gm in 50 mls @ 100 mls/hr 10/06/24 13:49 10/07/24 10:14 Rocephin/D5w 1gm Iv Premix IV 10/13/24 13:48 100 mls/hr QDAY DM Administration Doxycycline Hyclate 100 mg/ 100 mls @ 100 mls/hr 10/06/24 14:00 10/07/24 10:14 Sodium Chloride IV 10/13/24 13:59 100 mls/hr BID DM Administration Levothyroxine Sodium 50 mcg 10/06/24 06:00 10/07/24 05:27 Levothyroxine Sodium 25 Mcg Tablet PO 11/05/24 05:59 50 mcg ACBR DM Administration Ondansetron HCl 4 mg 10/05/24 18:33 Ondansetron Inj 2 Mg/Ml Inj 2 Ml IV 11/04/24 18:32 Q6H PRN NAUSEA OR VOMITING Protocol Oxcarbazepine 300 mg 10/05/24 21:00 10/07/24 10:15 Oxcarbazepine 150 Mg Tablet (Non-Formulary) PO 11/04/24 20:59 300 mg BID DM Administration Propranolol HCl 10 mg 10/06/24 09:00 10/07/24 10:15 Propranolol 10 Mg Tablet PO 11/05/24 08:59 10 mg QDAY DM Administration Quetiapine Fumarate 400 mg 10/06/24 11:45 10/07/24 10:14 Quetiapine Fumarate 100 Mg Tablet PO 11/05/24 11:44 400 mg QDAY DM Administration Plan Summary: A 59-year-old female patient with past medical history of developmental delay, hypothyroidism, brought [facility] the ED from [facility] after she was noticed to have 3 episodes of falls. Patient was admitted for AMS and recurrent falls most likely secondary to hypothyroidism. Assessment and plan #Acute encephalopathy most likely multifactorial secondary to hyponatremia versus pneumonia versus irritation side effect #Hyponatremia #History of hypothyroidism #History of developmental delay Patient has been not at her baseline as per the security researcher for last 24 hours and had 3 falls, noticed to have multiple psychotropic medications including 800 mg of Seroquel, loratadine, divalproex, Ingrezza, oxcarbazepine Initially could not obtain CT head and CT cervical spine as patient was uncooperative despite anxiolytics Unclear if patient had decreased oral intake Patient has sodium level of 122 on presentation, unclear chronicity Patient received 1 L IV normal saline in the ED, started on normal saline at 75 cc/h, however it overcorrected sodium level to 130 x 8 mEq in 20 hours. Plan ? Stop loratadine on discharge ? Decrease Seroquel to 400 mg at bedtime discharge and continue other psychotropic medications as prescribed by her PCP ? DC sodium checks ? Stop NS and stop IV fluids ? Continue to monitor oral intake with strict ins and outs ? PT evaluation tomorrow #PNA Patient has hx of cough for the past week. CXR from the 01 of October showed pre- hilar PNA Plan - Rocefin and Doxy 10/06/2024- - F/U on the C/S #Hypothyroidism Resumed home levothyroxine #Developmental delay Resumed home divalproex, oxcarbazepine, [facility] Maintenance: FEN: Regular diet DVT ppx: Lovenox GI ppx: Protonix IV lines: PIV Salazar: None Code status: Full code Dispo: Discharge tomorrow after PT evaluation - Patient's plan and care discussed with my attending, Dr. Uriel Banegas MD Internal Medicine PGY-2 Attending Provider Attestation/Addendum I attest that I was physically present for the evaluation, physical examination, lab and imaging review of the patient with the residents. I discussed the case with the residents and agree with the findings and plans of care as documented above. Sahil Willis MD
[2024-10-08] VITALS (8 sets, daily range): BP systolic 127–164; BP diastolic 69–86; PULSE 61–74; RESP 14–18; TEMP 36–36.3; O2SAT 94–98; BMI 13.0
[2024-10-08] MEDS: LEVOTHYROXINE SODIUM 25 MCG TABLET 50 MCG PO (06:24)
[2024-10-08 06:45] LABS: Basophils % (Auto) 0 % (0-2.5); Eosinophils # (Auto) 0.1 Thou/mm3 (0.0-0.5); Eosinophils % (Auto) 1 % (0-10); Hematocrit 33.4 % (36.0-46.0); Hemoglobin 11.9 g/dL (12.0-16.0); Immature Granulocytes % (Auto) 0 % (0-0); Immature Granulocytes Auto 0.01 Thou/mm3 (0.00-0.00); Lymphocytes # (Auto) 1.4 Thou/mm3 (1.0-4.8); Lymphocytes % (Auto) 21 % (10-50); Mean Corpuscular HGB Conc 35.6 g/dl (31.0-37.0); Mean Corpuscular Hemoglobin 29.4 pg (25.0-35.0); Mean Corpuscular Volume 83 fL (80-100); Monocytes % (Auto) 15 % (0-12); Neutrophils # (Auto) 4.1 Thou/mm3 (1.8-7.7); Neutrophils % (Auto) 62 % (37-80); Nucleated Red Blood Cell % 0 /100 WBC (0); Platelet Count 220 Thou/mm3 (140-440); RDW Standard Deviation 38.6 fL (36.4-46.3); Red Blood Count 4.05 Miln/mm3 (4.00-5.20); White Blood Count 6.7 Thou/mm3 (3.6-11.0)
[2024-10-08 06:57] LABS: Alanine Aminotransferase 12 U/L (10-49); Albumin, Serum 3.8 gm/dL (3.4-4.8); Albumin/Globulin Ratio 1.7 (1.2-2.2); Alkaline Phosphatase 87 U/L (46-116); Anion Gap 6 (7-16); Aspartate Amino Transferase 15 U/L (0-34); BUN/Creatinine Ratio 18 Ratio (12-20); Bilirubin,Total 0.3 mg/dL (0.3-1.2); Blood Urea Nitrogen 11 mg/dL (9-23); Calcium 8.9 mg/dL (8.3-10.6); Calcium (Corrected) 9.1 mg/dL (8.5-10.1); Carbon Dioxide 27.8 mMol/L (20.0-31.0); Chloride 101 mMol/L (98-107); Creatinine (Component) 0.6 mg/dL (0.6-1.3); Estimated Creatinine Clearance 71.6 mL/min (>60); Globulin 2.3 gm/dL (2.3-3.5); Glucose 83 mg/dL (74-106); Osmolality,Calculated 268 (275-295); Potassium 3.9 mMol/L (3.4-5.1); Sodium 135 mMol/L (136-145); Total Protein 6.1 gm/dL (5.7-8.2); eGFR > 60 See Note
[2024-10-08] MEDS: PROPRANOLOL 10 MG TABLET PO (09:14)
[2024-10-08] MEDS: QUEtiapine FUMARATE 100 MG TABLET 400 MG PO (09:14)
[2024-10-08] MEDS: ENOXAPARIN SOD INJ 40 MG/0.4 ML SYRINGE SC (09:15)
[2024-10-08] MEDS: OXCARBazepine 150 MG TABLET (NON-FORMULARY) 300 MG PO (09:15)
[2024-10-08] MEDS: cefTRIAXone/D5w 1gm IV premix 1 GM/50 ML BAG IV (09:15)
[2024-10-08] MEDS: DOXYCYCLINE INJ 100 MG in SODIUM CHLORIDE 0.9% (POP) 100 ML IV (09:16)
--- NOTE | 2024-10-08 09:54 | XR_ITS ---
Examination: AP chest single view Technique one AP portable semiupright chest single view Date and time: October 08, 2024 1058 hours Comparison October 01, 2024 INDICATIONS: SOB today. FINDINGS: Normal heart size Scarring versus minimal pneumonia in the right upper lobe Left lung clear Moderate osteopenia with advanced osteoarthritis glenohumeral joints IMPRESSION: Scarring versus mild pneumonia right upper lobe, clinical correlation advised
--- NOTE | 2024-10-08 10:26 | PC.SS ---
Addendum entered by Gabrielle Parra 10/08/24 10:47: SS received call from [facility] who is recommending [facility] for PT and explained pt ambulated 80 feet with walker without taking a break. SS has spoke to Gaudencio from [facility] to inform him and is agreeable to accept pt back. Per Gaudencio, they have a walker pt can use temporary. [facility] will provide transportation. Gaudencio is requesting a chest Xray be down before pt dc. Dr. Ball is aware. Original Note: Follow up note: On 2 IV antibiotics. Pending PT. Pt will return to [facility] upon dc if pt is able to ambulate.
--- NOTE | 2024-10-08 11:42 | ESDS_ITS ---
Planned Discharge Date 10/08/24 DS: Providers Provider Date of admission: 10/05/24 17:52 Primary care physician: Physician No Primary/Family Admitting Provider: Sahil Willis MD Attending Provider on Admission: Sahil Willis MD Consults: 10/06/24 07:30 Referral Physical Therapy Routine Comment: Physician Instructions: Attending Provider on DC: Sahil Willis MD Discharging Provider: Sahil Willis MD DS: Diagnosis Problem List Completed Was Problem List Reviewed/Reconciled?: Yes Hospital Course Hospital Course Hospital course: Zenaida is a 59 year old female with PMHx of developmental delay, hypothyroidism, who is admitted for acute encephalopathy status post mechanical fall likely due to hyponatremia. She presented to the ED with stable vitals. Lab results were significant for sodium level of 122, chloride [address] head and CT cervical spine was attempted in the ED but was unsuccessful due to patient noncompliance despite anxiolytics. Chest x-ray was done which showed moderate perihilar pneumonia. Medicine was consulted and patient was admitted for management of acute encephalopathy and hyponatremia. While patient was on the floors, patient patient had rapid correction of sodium within 24 hours, 8 points and was put on D5. Patient's sodium had leveled out and patient's sodium corrected. Patient was having possible oversedation and it was noticed that patient was on a number of psych meds and we had reduced patient's Seroquel to 400 mg. We also recommended patient to follow-up with her primary care doctor in management of psych meds and to have a medication reconciliation. Patient also had a session with physical therapy who had ambulated patient and had cleared patient for discharge at skilled nursing. Patient also had repeat chest x-ray for pneumonia which had showed improvement. Patient was given Augmentin and doxycycline to finish up antibiotic course for pneumonia. Discharge Instructions Follow up with your PCP within one week from discharge Follow up with your neurologist for medications reconciliation In case of worsening of your symptoms please return to the ED as soon as possbile Use meds as prescribed Finish your antibiotic course of Augmentin and Doxycycline Problem List: #Acute encephalopathy most likely secondary to hyponatremia #Hyponatremia #History of hypothyroidism #History of developmental delay #PNA #Hypothyroidism #Developmental delay Discharge summary was reviewed with my attending Dr. Lazaro Sánchez, PGY-1 Time Spent with Patient Time attestation: Total time spent providing and/or coordinating discharge services: Time spent: Less than 30 minutes Home Health Home Health Referral Orders: 10/08/24 11:22 Home Health Referral Routine Reason For Exam: Recurrent falls Home-Bound The patient must either because of illness or injury, need the aid of supportive devices such as crutches, canes, wheelchairs, and walkers; the use of special transportation; or the assistance of another person in order to leave their place of residence; OR have a condition such that leaving his or her home is medically contraindicated. In addition, the patient also meets the following criteria: patient is normally unable to leave the home and leaving home requires considerable taxing effort. Addendum to Home Health Certification Practitioner's Certification: I certify that the patient has been under my care in the hospital and the care of attending physician (see below). We had a [id number] encounter on (see date below). My clinical findings indicate that the patient is home bound per the above criteria and the Home Health Services noted in these orders are medically necessary. The primary reason for the [id number] encounter is related to the fact that the patient requires home health services. Date Certifying Ktbj-bn-Ylly Physician Encounter: 10/05/24 Physician's Name who will Assume Oversight for HH Services: Physician No Primary/Family METAL SPRAYER - Community Resources: No PT to Evaluate: No PT to evaluate and provide a treatmnet plan to increase patient's mobility and strength. Wound Care: No IV Therapy: No RN Safety Evaluation: Yes RN to evaluate and create a plan of care that will produce positive outcomes. Palliative Treatment: No Palliative treatment and evaluate the need for hospice. Home Health Aide - Personal Care: Yes Home Health Aide to assist with any ADL's. Exam Vital Signs Temp Pulse Resp BP Pulse Ox O2 Del Method 96.9 F 74 17 146/72 H 94 L Room Air 10/08/24 07:47 10/08/24 09:14 10/08/24 07:47 10/08/24 09:14 10/08/24 07:47 10/08/24 07:47 Narrative Exam General: AAOx3, NAD, developmentally delayed HEENT: Moist mucous membranes, conjunctiva clear, EOMI, PERRLA, Cardiovascular: S1, S2, radial pulses +2 bilat, RRR Pulmonary: CTAB bilat no cough, no wheezing GI: No tenderness to light or deep palpitation, no guarding, rigidity, rebound tenderness or distension Extremities: No presence of trace or pitting edema in lower extremities bilaterally, dorsalis pedis pulses +2 bilaterally Neuro: AAOx3, no focal motor or sensory deficits in the UE or LE bilat Psych: Able to somewhat cooperate Discharge Plan Plan Patient Disposition: Home w/HOME HEALTH Patient condition on transfer: Benefits outweigh risks Care Plan Goals: Discharge Instructions Follow up with your PCP within one week from discharge Follow up with your neurologist for medications reconciliation In case of worsening of your symptoms please return to the ED as soon as possible Use meds as prescribed Finish your antibiotic course of Augmentin and Doxycycline Prescriptions/Referrals Prescriptions/Med Rec: New doxycycline monohydrate 100 mg capsule 100 mg PO BID 6 Days Qty: 12 0RF amoxicillin-pot clavulanate 875-125 mg tablet 1 tab PO BID 6 Days Qty: 12 0RF Continued levothyroxine 75 mcg Tablet See Rx Instructions .ROUTE .COMPLEX Rx Instructions: 75 mcg orally once daily on Tuesday, Tuesday, Tuesday and levothyroxine 50 mcg Tablet See Rx Instructions .ROUTE .COMPLEX Rx Instructions: 50 mcg orally once daily on Tuesday, Tuesday and Tuesday quetiapine 400 mg Tablet Extended Release 24 Hr 400 mg PO QPM divalproex 500 mg Tablet Extended Release 24 Hr 500 mg PO HS oxcarbazepine 300 mg tablet 300 mg PO BID sennosides-docusate sodium [Stool Softener-Stimulant Laxat] 8.6-50 mg tablet 2 tab-cap PO QDAY Ingrezza 80 mg capsule 80 mg PO QDAY Linzess 145 mcg capsule 145 mcg PO QDAY Discontinued quetiapine [Seroquel XR] 400 mg Tablet Extended Release 24 Hr 400 mg PO HS polyethylene glycol 3350 17 gram Powder In Packet 17 g PO QDAY acetaminophen 325 mg capsule 650 mg PO Q8HR PRN (Reason: pain) Qty: 30 0RF lidocaine 5 % adhesive patch,medicated 2 patch topical QDAY Qty: 15 0RF Rx Instructions: leave on most painful area for up to 12 hrs acetaminophen [Athenol] 325 mg tablet 650 mg PO QID PRN (Reason: pain) Qty: 60 0RF propranolol 10 mg tablet 10 mg PO QDAY loratadine 10 mg tablet 10 mg PO QDAY Referrals: No Primary/Family,Physician [Primary Care Provider] - Patient/Caregiver Discharge Instructions Discharge Activity: activity as tolerated Education Materials: Hyponatremia Dc, ED Dehydration (Adult), ED Dizziness, Uncertain Cause Print Language: South African Stand Alone Forms: Tessa Award Info., Patient Portal Info Letter Discharge Order Discharge Orders: Discharge (Routine); Ordered 10/08/24 Ordered By: Hao Sánchez Quality Discharge Quality Measures VTE prophylaxis (Lovenox) Attestestation MD Attestation I attest that I was physically present for the evaluation, physical examination, lab and imaging review of the patient with the residents. I discussed the case with the residents and agree with the findings and plans of care as documented above. Sahil Willis MD
[2024-10-08] MEDS: INGREZZA 80 MG CAPSULE PO (11:47)
--- NOTE | 2024-10-08 19:03 | PC.CC ---
1905: referral sent to [facility]. awaiting response. 1050 received call from EMILIO Bradford about pt needing HH and the retirement informed her the preference is [facility]. will send referral once pt is dc'd
--- NOTE | 2024-10-09 08:17 | PC.CC ---
[facility] accepted and booked [facility] 10/10/24
== END 2024-10-08 17:53 | disposition home health service (06) | DRG 640 ==
LOC: SERX 15:49 → SERHOLD 18:05 → S2NX 10-06 14:38 → S3SX 10-08 01:10
PROVIDERS: Admitting Provider Student in an Organized Health Care Education/Training Program; Emergency Provider Family Medicine; Visit Provider Student in an Organized Health Care Education/Training Program
DX: E87.1 Hypo-osmolality and hyponatremia (principal); G93.41 Metabolic encephalopathy; J18.9 Pneumonia, unspecified organism; E03.9 Hypothyroidism, unspecified; R29.6 Repeated falls; W01.0XXA Fall on same level from slipping, tripping and stumbling without subsequent striking against object, initial encounter; Z91.199 Patient's noncompliance with other medical treatment and regimen due to unspecified reason; R62.50 Unspecified lack of expected normal physiological development in childhood; Z79.899 Other long term (current) drug therapy
CPT/HCPCS: 36415; 70450; 71045; 72125; 80053; 80307; 80320; 80329; 81001; 83735; 84100; 84295; 84443; 84484; 85025; 85610; 85730; 87811; 93005; 96361; 96372; 96374; 96375; 96376; 97162; 99285; J0696; J1650; J2060; J3490; J7030; J7060; A9270; G0480

== ENCOUNTER → 2024-10-29 | Outpatient (CLI) | payer MEDICARE, MEDICAID, SELFPAY ==
--- NOTE | 2024-10-29 | XR_ITS ---
Examination: AP lateral chest 2 views TECHNIQUE: AP lateral chest 2 views portable sitting Date and time: October 29, 2024 1117 hours INDICATIONS: Coughing beginning one month ago. FINDINGS: Moderate elevation left hemidiaphragm Normal heart size No pneumonia or pulmonary edema Old fracture right humeral neck Old fracture right sixth rib posterior laterally IMPRESSION: No pneumonia or pulmonary edema
== END | disposition home or self-care (01) ==
PROVIDERS: PCP Physician Assistant; Referring Provider Physician Assistant; Visit Provider Physician Assistant
DX: R05.9 Cough, unspecified (principal)
CPT/HCPCS: 71046

== ENCOUNTER → 2024-12-11 | Outpatient (CLI) | payer MEDICARE, MEDICAID, SELFPAY ==
--- NOTE | 2024-12-11 08:59 | XR_ITS ---
Examination: AP lateral chest 2 views TECHNIQUE: Upright AP lateral chest 2 views Date and time: December 11, 2024 0909 hours INDICATIONS: Coughing one month. FINDINGS: Mild left perihilar pneumonia Moderate elevation left hemidiaphragm Normal heart size IMPRESSION: Mild left perihilar pneumonia
== END | disposition home or self-care (01) ==
LOC: CDIM 08:46
PROVIDERS: PCP Physician Assistant; Referring Provider Physician Assistant; Visit Provider Physician Assistant
DX: J18.9 Pneumonia, unspecified organism (principal)
CPT/HCPCS: 71046

== ENCOUNTER 2024-12-29 08:36 | Emergency (ER) | payer MEDICARE, MEDICAID, SELFPAY ==
[2024-12-29 08:40] VITALS: BP 129/53; PULSE 99; RESP 18; TEMP 37.2; O2SAT 97; BMI 19.0
--- NOTE | 2024-12-29 08:50 | XR_ITS ---
Examination: AP lateral chest 2 views TECHNIQUE: upright portable lateral chest 2 views Date and time: December 29, 2024 0906 hours Comparison December 11, 2024 INDICATIONS: Chest pain and shortness of breath beginning 2 days ago, coated positive FINDINGS: Normal heart size Abundant air and stool in the colon No pneumonia or pulmonary edema Old fracture deformity proximal right humerus IMPRESSION: No active disease
--- NOTE | 2024-12-29 08:51 | PD.EDRME ---
Rapid Medical Screening Exam RME Arrival date/time: 12/29/24 08:36 59-year-old female presents to the emergency department today with caregiver reports patient has cough, congestion and shortness of breath reports she tested positive for COVID-19 on Tuesday Chief Complaint: Shortness of Breath/Dyspnea Vital signs: Vital Signs Temperature 98.9 F 12/29/24 08:40 Pulse Rate 99 12/29/24 08:40 Respiratory Rate 18 12/29/24 08:40 Blood Pressure 129/53 L 12/29/24 08:40 Pulse Oximetry (%) 97 12/29/24 08:40 Oxygen Delivery Method Room Air 12/29/24 08:40
[2024-12-29 09:59] LABS: Basophils # (Auto) 0.0 Thou/mm3 (0.0-0.2); Basophils % (Auto) 0 % (0-2.5); Eosinophils # (Auto) 0.0 Thou/mm3 (0.0-0.5); Eosinophils % (Auto) 0 % (0-10); Hematocrit 37.4 % (36.0-46.0); Hemoglobin 12.7 g/dL (12.0-16.0); Immature Granulocytes Auto 0.01 Thou/mm3 (0.00-0.00); Lymphocytes # (Auto) 1.2 Thou/mm3 (1.0-4.8); Lymphocytes % (Auto) 40 % (10-50); Mean Corpuscular HGB Conc 34.0 g/dl (31.0-37.0); Mean Corpuscular Hemoglobin 28.4 pg (25.0-35.0); Mean Corpuscular Volume 84 fL (80-100); Monocytes # (Auto) 0.4 Thou/mm3 (0.0-0.8); Monocytes % (Auto) 13 % (0-12); Neutrophils # (Auto) 1.3 Thou/mm3 (1.8-7.7); Neutrophils % (Auto) 46 % (37-80); Nucleated Red Blood Cell # 0.00 Thou/mm3 (0.00-0.00); Nucleated Red Blood Cell % 0 /100 WBC (0); Platelet Count 206 Thou/mm3 (140-440); RDW Standard Deviation 39.7 fL (36.4-46.3); Red Blood Count 4.47 Miln/mm3 (4.00-5.20)
[2024-12-29 10:26] LABS: White Blood Count 2.9 Thou/mm3 (3.6-11.0)
[2024-12-29 10:46] LABS: Albumin, Serum 4.1 gm/dL (3.4-4.8); Albumin/Globulin Ratio 1.7 (1.2-2.2); Alkaline Phosphatase 86 U/L (46-116); Anion Gap 8 (7-16); Aspartate Amino Transferase 14 U/L (0-34); BUN/Creatinine Ratio 11 Ratio (12-20); Bilirubin,Total 0.3 mg/dL (0.3-1.2); Blood Urea Nitrogen 10 mg/dL (9-23); Calcium 9.2 mg/dL (8.3-10.6); Calcium (Corrected) 9.2 mg/dL (8.5-10.1); Carbon Dioxide 25.9 mMol/L (20.0-31.0); Chloride 93 mMol/L (98-107); Creatinine (Component) 0.9 mg/dL (0.6-1.3); Estimated Creatinine Clearance 59.5 mL/min (>60); Globulin 2.4 gm/dL (2.3-3.5); Glucose 137 mg/dL (74-106); Osmolality,Calculated 256 (275-295); Potassium 4.5 mMol/L (3.4-5.1); Sodium 127 mMol/L (136-145); Total Protein 6.5 gm/dL (5.7-8.2); eGFR > 60 See Note
[2024-12-29 10:53] LABS: Alanine Aminotransferase 9 U/L (10-49)
[2024-12-29 11:36] VITALS: BP 137/71; PULSE 93; RESP 18; TEMP 36.3; O2SAT 97
--- NOTE | 2024-12-29 11:46 | PD.EDSOB ---
ED SOB =RME/HPI General Chief Complaint: Shortness of Breath/Dyspnea Stated Complaint: COVID+ SOB Time Seen by Provider: 12/29/24 10:55 Arrival date/time: 12/29/24 08:36 RME / HPI RME / HPI Narrative: 59-year-old female presents to the emergency department today with caregiver reports patient has cough, congestion and shortness of breath reports she tested positive for COVID-19 on Tuesday. Caregiver is worried because this morning patient woke up with mild shortness of breath. No fever noted no vomiting no diarrhea no other complaints noted. No medication was taken prior to arrival. Related Data Home Medications ?Medication ?Instructions ?Recorded ?Confirmed levothyroxine 50 mcg tablet See Rx Instructions .Route .COMPLEX 01/18/18 10/06/24 levothyroxine 75 mcg tablet See Rx Instructions .Route .COMPLEX 01/18/18 10/06/24 quetiapine 400 mg tablet,extended 400 mg PO QPM 08/09/18 10/06/24 release 24 hr divalproex 500 mg tablet,extended 500 mg PO HS 11/03/18 10/06/24 release 24 hr linaclotide 145 mcg capsule 145 mcg PO QDAY 10/06/24 10/06/24 (Linzess) oxcarbazepine 300 mg tablet 300 mg PO BID 10/06/24 10/06/24 sennosides 8.6 mg-docusate sodium 2 tab-cap PO QDAY 10/06/24 10/06/24 50 mg tablet (Stool Softener-Stimulant Laxative) valbenazine 80 mg capsule 80 mg PO QDAY 10/06/24 10/06/24 (Ingrezza) Allergies Allergy/AdvReac Type Severity Reaction Status Date / Time No Known Allergies Allergy Verified 12/29/24 11:35 Review of Systems Review of Systems Narrative Review of Systems: Review of system reviewed and within normal limits except mentioned in HPI ED Exam Narrative Physical exam: VITAL SIGNS: Reviewed. GENERAL APPEARANCE: Alert and interactive, follows commands, no acute distress, HEAD AND FACE: Non-traumatic. ENT: PERRL, pink conjunctivitis, eyelid no trauma, Mucous membrane moist. NECK: Supple, nontender, no nuchal rigidity. CHEST: No tenderness, no crepitus, no paradoxical movement, no retractions. LUNGS: Clear, well ventilated, symmetric, no rales, no wheezing, no ronchi, no stridor, good breath sounds bilaterally. HEART: Regular rate, regular rhythm, no murmur, no gallops. ABDOMEN: Soft, positive bowel sounds, nondistended, no guarding, nontender, no rebound, no masses, RECTAL: Deferred. GENITAL: Deferred. NEUROLOGICAL: Gross motor function intact sensory function intact, Appropriate for age. MUSCULOSKELETAL: low back nontender, full range of motion. EXTREMITIES: Nontender, full range of motion. SKIN: Color pink, dry, no rash, no lacerations, no abrasions, no contusions. LYMPHATICS: Deferred. Course Quality Measures none Orders Category Date Time Status XR chest 2V Stat Exams 12/29/24 08:50 Completed CBC Stat Lab 12/29/24 09:20 Completed CMP [Comprehensive Metabolic Panel] Stat Lab 12/29/24 09:20 Completed SODIUM CHLORIDE 0.9% @ Wide Open(1,000ml) Med 12/29/24 11:46 Ordered Sodium Chloride 0.9% 1000 ml [Ns] 1,000 ml IV 999 mls/hr Vital Signs Vital signs: Vital Signs Temperature 98.9 F 12/29/24 08:40 Pulse Rate 99 12/29/24 08:40 Respiratory Rate 18 12/29/24 08:40 Blood Pressure 129/53 L 12/29/24 08:40 Pulse Oximetry (%) 97 12/29/24 08:40 Oxygen Delivery Method Room Air 12/29/24 08:40 Shortness of Breath / Dyspnea MDM Narrative MDM Narrative:: 59-year-old female presents to the emergency department today with caregiver reports patient has cough, congestion and shortness of breath reports she tested positive for COVID-19 on Tuesday. Caregiver is worried because this morning patient woke up with mild shortness of breath. No fever noted no vomiting no diarrhea no other complaints noted. No medication was taken prior to arrival. I personally reviewed and interpreted the x-ray of this patient. There is no acute abnormalities found, no infiltrates no pneumothorax no hemothorax normal chest x-ray. Review of other structures was without significant abnormal findings also. I additionally reviewed the radiologist report and agree with the interpretation. Patient's workup today is significant for sodium of 127. And WBC count in CBC of 2.9, leukopenic. Which could be secondary to COVID-19. Currently patient was satting 98% on room air. Patient was given IV fluids for sodium of 127. Stable for discharge home Patient data External records reviewed:: None Clinical information provided by:: patient and showcase maker Social determinants that could affect healthcare access:: none Patient has the following chronic illnesses:: Seizure disorder How is presenting disease/condition affected by chronic disease/condition?: uneffected by Evaluation data The following diagnostics were reviewed and interpreted by me:: lab results and radiology exam(s) Lab and/or radiology exams considered but not ordered:: None Interpretation Summary: None see results MDM Medications / Prescriptions Medications or Prescriptions considered but not ordered:: None Medication administrations:: IV fluids Consultations Consultation(s) initiated? (list below): No Diagnosis Shortness of Breath Differential Diagnosis: acute exacerbation of chronic obstructive airways disease, congestive heart failure and community acquired pneumonia Most likely diagnosis given after review of the tests above:: COVID-19, hyponatremia Admission Indicated Admission indicated?: not indicated Admission Request Was there a request for admission?: No Disposition Plan Disposition Plan: Discharge Discharge Attestation Discharge Attestation: The patient's showcase maker was given an opportunity to ask questions and understood the discharge instructions. Discharge instructions specifically effects, indications for sooner follow up or return to the emergency department, and the expected course of current diagnosis. Patient condition: Stable Discharge Plan Plan Patient Disposition: HOME (Self Care) Discharge Disposition comment: stable Prescriptions/Referrals Prescriptions/Med Rec: No Action levothyroxine 75 mcg Tablet See Rx Instructions .ROUTE .COMPLEX Rx Instructions: 75 mcg orally once daily on Tuesday, Tuesday, Tuesday and levothyroxine 50 mcg Tablet See Rx Instructions .ROUTE .COMPLEX Rx Instructions: 50 mcg orally once daily on Tuesday, Tuesday and Tuesday quetiapine 400 mg Tablet Extended Release 24 Hr 400 mg PO QPM divalproex 500 mg Tablet Extended Release 24 Hr 500 mg PO HS oxcarbazepine 300 mg tablet 300 mg PO BID sennosides-docusate sodium [Stool Softener-Stimulant Laxat] 8.6-50 mg tablet 2 tab-cap PO QDAY Ingrezza 80 mg capsule 80 mg PO QDAY Linzess 145 mcg capsule 145 mcg PO QDAY Referrals: Iesha Alexander PA-C [Primary Care Provider] - In 1 week Problem List Clinical Impression: COVID Patient/Caregiver Discharge Instructions Discharge Activity: activity as tolerated Education Materials: Proning COVID-19 Additional Instructions: Thank you for the opportunity for serving you today. You are stable for discharged . You are advised to: Follow-up with your PCP in 1 to 2 days Return to ED for worsening of symptoms Print Language: Danish Stand Alone Forms: Tessa Award Info., Patient Portal Info Letter PA/ANTHROPOLOGY PROFESSOR Supervising Physician PA/ANTHROPOLOGY PROFESSOR Supervising Physician: Dr Bonilla
[2024-12-29] MEDS: SODIUM CHLORIDE 0.9% 1000 ML 1,000 ML 999 ML IV (12:18)
[2024-12-29 12:25] VITALS: BP 117/79; PULSE 82; RESP 16; TEMP 36; O2SAT 99
[2024-12-29 13:16] VITALS: BP 102/83; PULSE 78; RESP 18; TEMP 36.8; O2SAT 100
== END 2024-12-29 13:18 | disposition home or self-care (01) ==
PROVIDERS: Nurse Practitioner Primary Care; Emergency Provider Family Medicine; PCP Physician Assistant
DX: U07.1 COVID-19 (principal)
CPT/HCPCS: 36415; 71046; 80053; 85025; 96360; 99283; J7030